=== PATIENT | male | born 1990 | race African-American/Black ===

== ENCOUNTER 2020-03-18 21:53 | Emergency (ER) | payer SELFPAY ==
--- NOTE | ~2020-03-18 | CT_ITS ---
EXAMINATION: CT chest abdomen pelvis w con DATE: 03/18/2020 23:36 INDICATION: Chest pain. Flank pain. TECHNIQUE: Computed tomography (CT) of the chest, abdomen, and pelvis was performed with 100 mL Omnip aque 350 intravenous contrast. Automated exposure control and iterative reconstruction technique were employed. The dose-length product was 1165.63 mGy-cm. COMPARISON: Chest 2 views 03/18/2020 FINDINGS: CHEST CT: The lungs demonstrate mild atelectasis. No pleural effusion. The heart size is normal. No pericardial effusion. ABDOMEN/PELVIS CT: The liver, gallbladder, spleen, pancreas, adrenal glands, and kidneys are normal. There are no dilate d loops of bowel. The appendix is normal. There are no pathologically enlarged lymph nodes. There is no free intraperitoneal fluid. There is mild lumbar spondylosis. IMPRESSION: 1. No etiology for the patient's symptoms. Reviewed, dictated and finalized at location A.
--- NOTE | ~2020-03-18 | XR_ITS ---
EXAMINATION: XR chest 2V DATE: 03/18/2020 22:46 INDICATION: Anterior chest pain. TECHNIQUE: Frontal and lateral views of the chest were obtained. COMPARISON: None. FINDINGS: The chest demonstrates clear lungs without pneumonia, pleural effusion, or pneumothorax. Th e heart size is normal. IMPRESSION: 1. No acute cardiopulmonary disease. Reviewed, dictated and finalized at location A.
[2020-03-18 21:56] VITALS: BP 149/98; PULSE 96; RESP 18; TEMP 36.9; O2SAT 100
--- NOTE | 2020-03-18 22:05 | ED.EXTPRO ---
HPI - Extremity Problem General Chief complaint: Extremity Problem,Nontraumatic Stated complaint: bilateral shoulder pain Time Seen by Provider: 03/18/20 22:04 Source: patient and family Mode of arrival: ambulatory Limitations: no limitations History of Present Illness HPI Narrative: Pt presents to the ER for evaluation of chest and shoulder pain. Pt also reporting lower abdominal pain and nausea. No emesis. Pt reports onset of chest pain while he was playing video games this evening. He reports associated diaphoresis with the chest pain and bilateral shoulder pain. Pt states pain was aching in nature. He also reports lower back pain. No numbness. Pain is mild in nature, rated 3/10 in severity. No fever, chills, cough, or shortness of breath. No history of sudden cardiac in the family, no immediate family members with history of [place]. Pt without history of diabetes, htn, or hld. Pt does smoke cigarrettes. Review of Systems Review of Systems: Narrative: CONSTITUTIONAL: Denies fever, chills, or sweats. CARDIOVASCULAR: Reports chest pain, denies palpitations RESPIRATORY: Denies cough or dyspnea. GASTROINTESTINAL: Denies abdominal pain, reports nausea GENITOURINARY: Denies dysuria or hematuria. SKIN: Denies rash or itching. MUSCULOSKELETAL: Reports flank pain, reports bilateral shoulder pain NEUROLOGIC: Denies headache, numbness, or weakness. [facility] Past Medical History Medical History (Updated 03/19/20 @ 01:22 by Fátima Nunez MD) No pertinent past medical history Surgical History Surgical History (Updated 03/18/20 @ 22:46 by Fátima Nunez MD) No pertinent past surgical history Social History Social History (Updated 03/18/20 @ 22:46 by Fátima Nunez MD) Smoking status: Current every day smoker Tobacco type: cigarettes Alcohol intake: current Substance use: never Living arrangements: with family Gender identity (if verbalized by the patient): Male Exam Narrative: Exam Narrative: GENERAL: Awake, alert, conversant HEAD: Normocephalic, atraumatic. EYES: PERRLA and EOMI. ENT: Nares clear, no rhinorrhea or epistaxis. Mucous membranes moist. NECK: Supple. CHEST: No respiratory distress, breathing even and non labored, no chest wall tenderness HEART: Regular rate, sinus rhythm ABDOMEN:Non distended, non tender EXTREMITIES: Normal range of motion. No edema. No calf tenderness. SKIN: Warm, dry, no rash. NEURO:No focal deficits. Alert and oriented x3 Course Vital Signs Vital signs: Vital Signs Temperature 36.9 C 03/18/20 21:56 Pulse Rate 96 03/18/20 21:56 Respiratory Rate 18 03/18/20 21:56 Blood Pressure 149/98 H 03/18/20 21:56 Pulse Oximetry 100 03/18/20 21:56 Temperature 36.9 C 03/18/20 21:56 Pulse Rate 76 03/19/20 00:02 Respiratory Rate 18 03/19/20 00:02 Blood Pressure 128/84 03/19/20 00:02 Pulse Oximetry 100 03/19/20 00:02 MDM - Extremity (Nontraumatic) MDM Narrative Medical decision making narrative: Patient presented for evaluation of chest pain. At the time of assessment, ABCs are intact and vital signs are stable. No reproducible chest wall pain. EKG without acute ischemic changes. Initial troponin is undetected. Patient also complaining of abdominal pain, flank pain, shoulder pain, wanted to ensure no aortic pathology, thus CTA was obtained and no acute vascular emergency or etiology to explain the patient's symptoms. Chest x-ray without acute cardiopulmonary abnormality. Second troponin is also undetected. At this point, patient with low heart score I feel he may best follow-up with a primary care physician and a cattle knocker and he was given information for both. Patient was advised to return should his symptoms change or recur. Lab Data Result diagrams: 03/18/20 22:50 03/18/20 22:50 Labs: Lab Results 03/18/20 03/18/20 03/18/20 Range/Units 22:50 22:50 22:50 WBC 11.5 H (4.5-10.0) K/mm3 RBC 4.46 L
--- NOTE | 2020-03-18 22:35 | ECG_ITS ---
Measurements Intervals [place] Rate: 97 P: 65 RI: 156 QRS: 28 QRSD: 92 T: 13 QT: 345 QTc: 438 Interpretive Statements SINUS RHYTHM VOLTAGE CRITERIA FOR LVH MINIMAL Q WAVES- HIGH LATERAL LEADS ST ELEVATION IN ANT/LAT LEADS- PROBABLY EARLY REPOLARIZATION BORDERLINE ST-T WAVE ABNORMALITY- INFERIOR LEADS BASELINE WANDER- I, II BORDERLINE ECG Electronically Signed On 03-19-2020 7:06:10 CDT by Selwyn Lr D.O.
[2020-03-18] MEDS: ASPIRIN 81 MG CHEWABLE TABLET 324 MG PO (22:47)
[2020-03-18] MEDS: ONDANSETRON INJ 4 MG/2 ML VIAL IV PUSH (22:48)
[2020-03-18] MEDS: MORPHINE SULFATE 2 MG/ML INJ IV PUSH (22:48)
[2020-03-18 22:50] VITALS: BP 130/87; PULSE 90; RESP 20; O2SAT 99
[2020-03-18 22:56] LABS: Basophils Percent Auto 0.3 % (0.2-1.2); Eosinophils Absolute Auto 0.3 K/mm3 (0-0.3); Eosinophils Percent Auto 2.8 % (0-4.4); Hematocrit 41.8 % (42.0-52.0); Hemoglobin 14.1 g/dL (14.0-18.0); Immature Granulocyte Absolute 0.04 K/mm3 (0.00-0.031); Immature Granulocyte Percent A 0.3 % (0-0.5); Lymphocytes Absolute Auto 2.97 K/mm3 (0.9-3.2); Lymphocytes Percent Auto 25.9 % (18.3-44.2); Mean Corpuscular HGB Conc 33.7 g/dl (32-36); Mean Corpuscular Hemoglobin 31.6 pg (26-34); Mean Corpuscular Volume 93.7 fl (80-100); Mean Platelet Volume 9.6 fl (7.4-10.4); Monocytes Absolute Auto 0.6 K/mm3 (0.1-0.6); Monocytes Percent Auto 5.3 % (2.6-8.5); Neutrophils Absolute Auto 7.5 K/mm3 (1.3-6.7); Neutrophils Percent Auto 65.4 % (45.5-73.1); Platelet Count Result 289 k/mm3 (150-375); Red Blood Count 4.46 M/mm3 (4.6-6.20); Red Cell Distribution Width 12.7 % (11.5-14.5); White Blood Count 11.5 K/mm3 (4.5-10.0)
[2020-03-18 23:08] LABS: INR 1.1; Prothrombin Time 13.5 Seconds (11.1-14.7)
[2020-03-18 23:09] LABS: Partial Thromboplastin Time 26.9 SECONDS (22.3-36.8)
[2020-03-18 23:12] LABS: Alanine Aminotransferase 32 U/L (4-50); Albumin Level 4.7 g/dL (3.5-5.1); Alkaline Phosphatase 115 U/L (38-126); Aspartate Amino Transferase 42 U/L (17-59); Bilirubin,Total 0.3 mg/dL (0.2-1.3); Blood Urea Nitrogen 8 mg/dL (9-20); Calcium 8.9 mg/dL (8.4-10.2); Carbon Dioxide 29 mmol/L (22-30); Chloride 101 mmol/L (98-107); Estimated CRCL calculation 108 ml/min; Estimated Glomerular Filt Rate > 60; Glucose 103 mg/dL (75-110); Lipase 139 U/L (23-300); Potassium 3.7 mmol/L (3.4-5.0); Sodium 135 mmol/L (137-145)
[2020-03-18 23:23] LABS: Troponin I < 0.012 ng/mL (0.000-0.034)
[2020-03-19 00:02] VITALS: BP 128/84; PULSE 76; RESP 18; O2SAT 100
[2020-03-19 00:14] LABS: Add Urine Microscopic? YES; Appearance Urine Clear (Clear); Bilirubin Urine Negative (Negative); Blood Urine Negative (Negative); Color Urine Yellow (Yellow); Glucose Urine UA Negative (Negative); Ketones Urine Negative (Negative); Leukocyte Esterase Ur Negative LEU/UL (Negative); Mucus Urine Rare /lpf; Nitrate Urine Negative (Negative); Protein Urine Negative (Negative); RBC Urine 0-2 /hpf (0-2); Specific Grav Ur 1.028 (1.001-1.035); Squamous Epithelial Cell Urine Rare /hpf (Few); Urobilinogen Urine Negative mg/dL (<2.0); WBC Urine 0-3 /hpf
[2020-03-19 01:10] LABS: Troponin I < 0.012 ng/mL (0.000-0.034)
[2020-03-19 01:32] VITALS: BP 139/79; PULSE 79; RESP 19; TEMP 36.8; O2SAT 100
== END 2020-03-19 01:34 | disposition home or self-care (01) ==
PROVIDERS: Emergency Provider Emergency Medicine
DX: R07.89 Other chest pain (principal); F17.210 Nicotine dependence, cigarettes, uncomplicated; R94.31 Abnormal electrocardiogram [ECG] [EKG]
CPT/HCPCS: 36415; 71046; 71260; 74177; 80053; 81001; 83690; 84484; 85025; 85610; 85730; 93005; 96374; 96375; 99284; A9270; J2270; J2405; Q9967